=== PATIENT | female | born 1995 | race American Indian/Alaskan Native ===

== ENCOUNTER 2020-10-23 00:45 | Emergency (ER) | payer SELFPAY ==
--- NOTE | 2020-10-23 02:29 | XRay Report ---
XR knee 3V RT INDICATION: right knee pain. COMPARISON: No relevant prior imaging study available. FINDINGS: No acute skeletal abnormality. No significant soft tissue abnormality. IMPRESSION: 1. No acute findings. Signer Name: Yury Alfaro MD Signed: 10/23/2020 2:25 AM Workstation Name: [id number]
--- NOTE | 2020-10-23 03:15 | Emergency Department Report ---
ED Lower Extremity HPI - General Chief Complaint: Extremity Injury, Lower Stated Complaint: FALL Time Seen by Provider: 10/23/20 03:05 Source: patient Mode of arrival: Ambulatory Limitations: No Limitations - History of Present Illness MD Complaint: knee injury (Prolonged some steps and missed a step causing her right knee to twist laterally which follow-up followed by pain and a sensation of swelling which is continues to throb and elevate since the onset) -: days(s) (1) Injury: Knee: Right Type of Injury: eversion Place: home Severity: mild, moderate Improves With: immobilization Worsens With: weight bearing, movement, palpation Associated Symptoms: swelling, able to partially bear weight - Related Data Previous Rx's Medication Instructions Recorded Last Taken Type Ketorolac [Toradol] 10 mg PO Q6H PRN #14 tablet 10/23/20 Unknown Rx Allergies Allergy/AdvReac Type Severity Reaction Status Date / Time No Known Allergies Allergy Unverified 10/23/20 02:03 ED Review of Systems ROS: Stated complaint: FALL Other details as noted in HPI Comment: All other systems reviewed and negative ED Past Medical Hx - Past Medical History Previous Medical History?: Yes Hx Asthma: Yes - Surgical History Past Surgical History?: No - Social History Smoking Status: Current Every Day Smoker Substance Use Type: None - Medications Home Medications: Home Medications Medication Instructions Recorded Confirmed Last Taken Type Ketorolac [Toradol] 10 mg PO Q6H PRN #14 tablet 10/23/20 Unknown Rx ED Physical Exam - General Limitations: No Limitations General appearance: alert, in no apparent distress - Head Head exam: Present: atraumatic, normocephalic - Eye Eye exam: Present: normal appearance - ENT ENT exam: Present: mucous membranes moist - Neck Neck exam: Present: normal inspection - Respiratory Respiratory exam: Present: normal lung sounds bilaterally. Absent: respiratory distress - Cardiovascular Cardiovascular Exam: Present: regular rate, normal rhythm. Absent: systolic murmur, diastolic murmur, rubs, gallop - GI/Abdominal GI/Abdominal exam: Present: soft, normal bowel sounds - Extremities Exam Extremities exam: Present: normal inspection, tenderness, normal capillary refill - Expanded Lower Extremity Exam Right Knee exam: Present: tenderness, swelling, effusion, pain w/ pronati on/supination, pain/laxity with varus, full knee extension. Absent: ecchymosis, deformity, crepidus, dislocation, erythema Lower Leg exam: Present: normal inspection, full ROM Ankle exam: Present: normal inspection, full ROM Foot/Toe exam: Present: normal inspection, full ROM - Back Exam Back exam: Present: normal inspection - Neurological Exam Neurological exam: Present: alert, oriented X3 - Psychiatric Psychiatric exam: Present: normal affect, normal mood - Skin Skin exam: Present: warm, dry, intact, normal color. Absent: rash ED Course Vital Signs 10/23/20 01:57 Temperature 98.2 F Pulse Rate 101 H Respiratory 18 Rate Blood Pressure 117/68 O2 Sat by Pulse 99 Oximetry ED Lower Extremity MDM - Radiology Data Radiology results: report reviewed [facility] [address] [place] [address] XRay Report Signed Patient: KAREN NOBLE MR#: [id number] : 1995 Acct:[id number] Age/Sex: 25 / F ADM Date: 10/23/20 Loc: ED Attending Dr: Ordering Physician: ED MD AMAIRANI Date of Service: 10/23/20 Procedure(s): XR knee 3V RT Accession Number(s): [id number] cc: ED MD AMAIRANI Fluoro Time In Minutes: XR knee 3V RT INDICATION: right knee pain. COMPARISON: No relevant prior imaging study available. FINDINGS: No acute skeletal abnormality. No significant soft tissue abnormality. IMPRESSION: 1. No acute findings. Signer Name: Yury Alfaro MD Signed: 10/23/2020 2:25 AM Workstation Name: [id number] Transcribed By: JUAN Dictated By: Yury Alfaro MD Electronically Authenticated By: Yury Alfaro MD Signed Date/Time: 10/23/20224 DD/ 3 TD/TT: - Medical Decision Making 19-year-old female trips twisting injury to the knee resulting in pain likely internal derangement of a mild to moderate etiology unable to bear weight well enough to ambulate at emergency department so provided with crutches and a knee immobilizer she has been this advised and we discussed in great detail her need to follow-up with orthopedic she did express an understanding Critical care attestation.: If time is entered above; I have spent that time in minutes in the direct care of this critically ill patient, excluding procedure time. ED Disposition Clinical Impression: Knee internal derangement Disposition: DC-01 TO HOME OR SELFCARE Is pt being admited?: No Does the pt Need Aspirin: No Condition: Stable Instructions: Meniscus Tear, Acute Knee Pain, Adult Prescriptions: Ketorolac [Toradol] 10 mg PO Q6H PRN #14 tablet PRN Reason: Pain Referrals: PRIMARY CARE, [Primary Care Provider] - 3-5 Days DAYANA ALVES MD [Staff Physician] - 3-5 Days
[2020-10-23] MEDS ORDERED: HYDROcodone/ACETAMINOPHEN 5-325 MG TAB PO STA (03:17)
[2020-10-23 04:42] VITALS: BP 120/72
== END 2020-10-23 03:51 | disposition home or self-care (01) ==
LOC: ED 00:45
DX: M23.8X1 Other internal derangements of right knee (principal); J45.909 Unspecified asthma, uncomplicated; F17.200 Nicotine dependence, unspecified, uncomplicated; Z79.899 Other long term (current) drug therapy

== ENCOUNTER 2020-11-15 18:32 | Emergency (ER) | payer SELFPAY ==
[2020-11-15 21:13] VITALS: BP 119/43
== END 2020-11-15 23:50 | disposition left against medical advice (07) ==
LOC: ED 18:32
DX: M25.562 Pain in left knee (principal); Z53.21 Procedure and treatment not carried out due to patient leaving prior to being seen by health care provider

== ENCOUNTER 2020-11-16 10:08 | Emergency (ER) | payer SELFPAY ==
[2020-11-16 10:26] VITALS: BP 145/93
--- NOTE | 2020-11-16 11:52 | Emergency Department Report ---
ED Lower Extremity HPI - General Chief Complaint: Extremity Injury, Lower Stated Complaint: LT KNEE PAIN Time Seen by Provider: 11/16/20 10:38 Source: patient Mode of arrival: Ambulatory Limitations: No Limitations - History of Present Illness Initial Comments: Atraumatic left knee pain for 1 month. 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 Type of Injury: unknown Place: home, work Severity: mild Improves With: nothing Worsens With: nothing Associated Symptoms: ambulatory - Related Data Previous Rx's Medication Instructions Recorded Last Taken Type Ketorolac [Toradol] 10 mg PO Q6H PRN #14 tablet 10/23/20 Unknown Rx Ketorolac [Toradol] 10 mg PO Q6H PRN #14 tablet 11/16/20 Unknown Rx Allergies Allergy/AdvReac Type Severity Reaction Status Date / Time No Known Allergies Allergy Verified 11/16/20 10:22 ED Review of Systems ROS: Stated complaint: LT KNEE PAIN Other details as noted in HPI Comment: All other systems reviewed and negative ED Past Medical Hx - Past Medical History Hx Asthma: Yes - Surgical History Past Surgical History?: No - Social History Smoking Status: Never Smoker Substance Use Type: None - Medications Home Medications: Home Medications Medication Instructions Recorded Confirmed Last Taken Type Ketorolac [Toradol] 10 mg PO Q6H PRN #14 tablet 10/23/20 Unknown Rx Ketorolac [Toradol] 10 mg PO Q6H PRN #14 tablet 11/16/20 Unknown Rx ED Physical Exam - General Limitations: No Limitations General appearance: alert, in no apparent distress - Head Head exam: Present: atraumatic, normocephalic - Eye Eye exam: Present: normal appearance, PERRL, EOMI Pupils: Present: normal accommodation - ENT ENT exam: Present: normal exam, mucous membranes moist - Neck Neck exam: Present: normal inspection, full ROM - Respiratory Respiratory exam: Present: normal lung sounds bilaterally. Absent: respiratory distress - Cardiovascular Cardiovascular Exam: Present: regular rate, normal rhythm. Absent: systolic murmur, diastolic murmur, rubs, gallop - GI/Abdominal GI/Abdominal exam: Present: soft, normal bowel sounds - Extremities Exam Extremities exam: Present: normal inspection - Back Exam Back exam: Present: normal inspection - Neurological Exam Neurological exam: Present: alert, oriented X3 - Psychiatric Psychiatric exam: Present: normal affect, normal mood - Skin Skin exam: Present: warm, dry, intact, normal color. Absent: rash ED Course Vital Signs 11/16/20 10:24 Temperature 97.9 F Pulse Rate 95 H Respiratory 16 Rate Blood Pressure 145/93 O2 Sat by Pulse 99 Oximetry Critical care attestation.: If time is entered above; I have spent that time in minutes in the direct care of this critically ill patient, excluding procedure time. ED Disposition Clinical Impression: Knee pain Disposition: DC-01 TO HOME OR SELFCARE Is pt being admited?: No Does the pt Need Aspirin: No Condition: Stable Instructions: Acute Knee Pain, Adult, How to Use Cold Therapy, Zbcn-[id number], Joint Pain, [id number]-[id number] Additional Instructions: Please follow up with your PCP or ORTHO as there has been on trauma involved with your knee and your exam is normal. Further testing may be warranted but no urgent or emergent knee condition is suspected Prescriptions: Ketorolac [Toradol] 10 mg PO Q6H PRN #14 tablet PRN Reason: Pain Referrals: PRIMARY CAREMD [Primary Care Provider] - 3-5 Days DAYANA ALVES MD [Staff Physician] - 3-5 Days
== END 2020-11-16 12:21 | disposition home or self-care (01) ==
LOC: ED 10:08
DX: M25.562 Pain in left knee (principal); J45.909 Unspecified asthma, uncomplicated; Z79.899 Other long term (current) drug therapy
CPT/HCPCS: 99282

== ENCOUNTER 2020-12-31 13:17 | Emergency (ER) | payer SELFPAY ==
[2020-12-31 14:11] VITALS: BP 132/76
--- NOTE | 2020-12-31 14:16 | Emergency Department Report ---
ED Asthma HPI - General Chief Complaint: Adult Asthma Stated Complaint: CHEST TIGHT/MILD ASTHMA ATTACK Time Seen by Provider: 12/31/20 14:02 Source: patient Mode of arrival: Ambulatory Limitations: No Limitations - History of Present Illness Initial Comments: Is a pleasant 25-year-old female presents the emerge department chief complaint of tightness in her chest and a dry cough over the past few days. She reports she has been having flareups of the symptoms on and off over the past month. She has a history of asthma but does not take any medications currently. She denies any associated fever, chills, night sweats, headache, dizziness, blurry vision, nausea,, diarrhea, chest pain, shortness of breath otherwise. She denies any sick contacts, recent travel or immobilization. - Related Data Previous Rx's Medication Instructions Recorded Last Taken Type Ketorolac [Toradol] 10 mg PO Q6H PRN #14 tablet 10/23/20 Unknown Rx Ketorolac [Toradol] 10 mg PO Q6H PRN #14 tablet 11/16/20 Unknown Rx Albuterol Sulfate [Proair 90 mcg IH Q4HR PRN #1 aer.pw.bas 12/31/20 Unknown Rx Digihaler] methylPREDNISolone [Medrol 4MG 4 mg PO ONCE #1 tab.ds.pk 12/31/20 Unknown Rx DOSEPAK (21 tabs)] Allergies Allergy/AdvReac Type Severity Reaction Status Date / Time No Known Allergies Allergy Verified 11/16/20 10:22 ED Review of Systems ROS: Stated complaint: CHEST TIGHT/MILD ASTHMA ATTACK Other details as noted in HPI Comment: All other systems reviewed and negative Constitutional: denies: chills, fever Eyes: denies: eye pain, eye discharge, vision change ENT: denies: ear pain, throat pain Respiratory: see HPI, cough, wheezing. denies: shortness of breath Cardiovascular: denies: chest pain, palpitations Endocrine: no symptoms reported Gastrointestinal: denies: abdominal pain, nausea, diarrhea Genitourinary: denies: urgency, dysuria, discharge Musculoskeletal: denies: back pain, joint swelling, arthralgia Skin: denies: rash, lesions Neurological: denies: headache, weakness, paresthesias Psychiatric: denies: anxiety, depression Hematological/Lymphatic: denies: easy bleeding, easy bruising ED Past Medical Hx - Past Medical History Previous Medical History?: Yes Hx Asthma: Yes - Surgical History Past Surgical History?: No - Social History Smoking Status: Current Every Day Smoker Substance Use Type: None - Medications Home Medications: Home Medications Medication Instructions Recorded Confirmed Last Taken Type Ketorolac [Toradol] 10 mg PO Q6H PRN #14 tablet 10/23/20 Unknown Rx Ketorolac [Toradol] 10 mg PO Q6H PRN #14 tablet 11/16/20 Unknown Rx Albuterol Sulfate [Proair 90 mcg IH Q4HR PRN #1 aer.pw.bas 12/31/20 Unknown Rx Digihaler] methylPREDNISolone [Medrol 4MG 4 mg PO ONCE #1 tab.ds.pk 12/31/20 Unknown Rx DOSEPAK (21 tabs)] ED Physical Exam - General Limitations: No Limitations General appearance: alert, in no apparent distress - Head Head exam: Present: atraumatic, normocephalic - Eye Eye exam: Present: normal appearance, PERRL, EOMI Pupils: Present: normal accommodation - ENT ENT exam: Present: normal exam, normal orophraynx, mucous membranes moist - Neck Neck exam: Present: normal inspection, full ROM. Absent: tenderness - Respiratory Respiratory exam: Present: wheezes (Mild expiratory wheezing, no increased work of breathing). Absent: respiratory distress, rales, rhonchi, stridor, chest wall tenderness - Cardiovascular Cardiovascular Exam: Present: regular rate, normal rhythm. Absent: systolic murmur, diastolic murmur, rubs, gallop - GI/Abdominal GI/Abdominal exam: Present: soft, normal bowel sounds - Extremities Exam Extremities exam: Present: normal inspection - Back Exam Back exam: Present: normal inspection - Neurological Exam Neurological exam: Present: alert, oriented X3 - Psychiatric Psychiatric exam: Present: normal affect, normal mood - Skin Skin exam: Present: warm, dry, intact, normal color. Absent: rash ED Course Vital Signs 12/31/20 14:07 Temperature 98.6 F Pulse Rate 90 Respiratory 20 Rate Blood Pressure 132/76 O2 Sat by Pulse 96 Oximetry ED Medical Decision Making - Medical Decision Making Patient nontoxic in no acute distress. Vital signs are stable. She is PERC negative and a low risk by Wells criteria making PE unlikely. Her lung sounds relatively clear other than very mild expiratory wheeze. I will treat the patient with Medrol Dosepak and inhaler and recommended outpatient follow-up with primary care doctor. Return to the emerge department change worsening symptoms. Patient verbalized understand the diagnosis, treatment plan and follow-up instructions and all of her questions were answered. - Differential Diagnosis URI, asthma exacerbation, COVID-19, PE Critical care attestation.: If time is entered above; I have spent that time in minutes in the direct care of this critically ill patient, excluding procedure time. ED Disposition Clinical Impression: Asthma exacerbation Qualifiers: Asthma severity: mild Asthma persistence: intermittent Qualified Code(s): J45.21 - Mild intermittent asthma with (acute) exacerbation Disposition: TO HOME OR SELFCARE Is pt being admited?: No Condition: Stable Instructions: Asthma, Adult Prescriptions: methylPREDNISolone [Medrol 4MG DOSEPAK (21 tabs)] 4 mg PO ONCE #1 tab.ds.pk Albuterol Sulfate [Proair Digihaler] 90 mcg IH Q4HR PRN #1 aer.pw.bas PRN Reason: Wheezing Referrals: DELTA GARNER MD [Staff Physician] - 3-5 Days [facility] [Provider Group] - 3-5 Days Forms: Work/School Release Form(ED) Time of Disposition: 14:15
== END 2020-12-31 15:02 | disposition home or self-care (01) ==
LOC: ED 13:17
DX: J45.901 Unspecified asthma with (acute) exacerbation (principal); F17.200 Nicotine dependence, unspecified, uncomplicated; Z79.899 Other long term (current) drug therapy
CPT/HCPCS: 99282

== ENCOUNTER 2021-05-15 19:17 | Emergency (ER) | payer SELFPAY ==
[2021-05-15] MEDS ORDERED: IPRATROPIUM 0.02% NEBU 2.5 ML IH ONE (20:53)
[2021-05-15] MEDS ORDERED: ALBUTEROL 2.5 MG/3 ML NEBU IH ONE (20:53)
[2021-05-15] MEDS ORDERED: ACETAMINOPHEN 500 MG TAB PO ONE (20:54)
[2021-05-15] MEDS ORDERED: predniSONE 20 MG TAB PO ONE (20:54)
[2021-05-15 21:20] LABS: Bilirubin,Urine NEG (Negative); Blood,Urine NEG (Negative); Color,Urine Yellow (Yellow); Mucus,Urine 1+ /HPF; Protein,Urine <15 mg/dL mg/dL (Negative)
[2021-05-15 21:31] LABS: HCG Qualitative,Urine Negative (Negative)
--- NOTE | 2021-05-15 21:56 | XRay Report ---
XR chest 1V ap INDICATION / CLINICAL INFORMATION: COUGH, ASTHMA. COMPARISON: None available. FINDINGS: SUPPORT DEVICES: None. HEART /PULMONARY VASCULATURE: No significant abnormality. LUNGS / PLEURA: No significant pulmonary or pleural abnormality. No pneumothorax. ADDITIONAL FINDINGS: No significant additional findings. IMPRESSION: 1. No acute findings. Signer Name: Lee Arreola MD Signed: 05/15/2021 9:51 PM Workstation Name: [id number]
--- NOTE | 2021-05-15 23:57 | Emergency Department Report ---
ED Shortness of Breath HPI - General Chief Complaint: Adult Asthma Stated Complaint: TIGHTNESS CHEST Source: patient Mode of arrival: Ambulatory Limitations: No Limitations - History of Present Illness Initial Comments: Patient is a 25-year-old -[place] female with a history of chronic heavy tobacco abuse and asthma who presents to the ED with complaint of acute onset p ersistent shortness of breath, nasal and sinus congestion, chest tightness for the last 24 hours. Patient states that she has been using her albuterol inhaler at home after she ran out of her albuterol nebulizer at home but that her symptoms have worsened especially in the last 6 hours. Patient denies fever, chills, chest pain, abdominal pain, diarrhea, dizziness, syncope, change in vision, headache, nausea and vomiting or or hemoptysis. MD Complaint: shortness of breath, cough, "asthma attack" -: Sudden, hour(s) (24) Radiation: other (chest pain) Severity: moderate Pain Scale: 5 Quality: other (Chest tightness) Consistency: constant Improves With: nothing Worsens With: nothing Known History Of: asthma Context: recent URI, allergen exposure Associated Symptoms: denies other symptoms, cough, other (Wheezing) Treatments Prior to Arrival: none - Related Data Home Oxygen Therapy: No Previous Rx's Medication Instructions Recorded Last Taken Type Ketorolac [Toradol] 10 mg PO Q6H PRN #14 tablet 10/23/20 Unknown Rx Ketorolac [Toradol] 10 mg PO Q6H PRN #14 tablet 11/16/20 Unknown Rx ALBUTEROL NEB's [Proventil 0.083% 3 ml IH Q6H PRN #75 ml 05/15/21 Unknown Rx NEBS] Albuterol Sulfate [Proair 90 mcg IH Q4HR PRN #1 aer.pw.bas 05/15/21 Unknown Rx Digihaler] Benzonatate [Tessalon Perles] 100 mg PO Q8HR #30 capsule 05/15/21 Unknown Rx Cetirizine HCl [Zyrtec 10mg tab] 10 mg PO DAILY #30 tablet 05/15/21 Unknown Rx methylPREDNISolone [Medrol 4MG 4 mg PO ONCE #1 tab.ds.pk 05/15/21 Unknown Rx DOSEPAK (21 tabs)] Allergies Allergy/AdvReac Type Severity Reaction Status Date / Time No Known Allergies Allergy Verified 11/16/20 10:22 ED Review of Systems ROS: Stated complaint: TIGHTNESS CHEST Other details as noted in HPI Constitutional: denies: chills, fever Eyes: denies: eye pain, eye discharge, vision change ENT: denies: ear pain, throat pain Respiratory: cough, shortness of breath, wheezing Cardiovascular: chest pain (Chest tightness). denies: palpitations Endocrine: no symptoms reported Gastrointestinal: denies: abdominal pain, nausea, vomiting, diarrhea Genitourinary: denies: urgency, dysuria, discharge Musculoskeletal: denies: back pain, joint swelling, arthralgia Skin: denies: rash, lesions Neurological: denies: headache, weakness, paresthesias Psychiatric: denies: anxiety, depression Hematological/Lymphatic: denies: easy bleeding, easy bruising ED Past Medical Hx - Past Medical History Hx Asthma: Yes - Surgical History Past Surgical History?: No - Social History Smoking Status: Never Smoker Substance Use Type: None - Medications Home Medications: Home Medications Medication Instructions Recorded Confirmed Last Taken Type Ketorolac [Toradol] 10 mg PO Q6H PRN #14 tablet 10/23/20 Unknown Rx Ketorolac [Toradol] 10 mg PO Q6H PRN #14 tablet 11/16/20 Unknown Rx ALBUTEROL NEB's [Proventil 0.083% 3 ml IH Q6H PRN #75 ml 05/15/21 Unknown Rx NEBS] Albuterol Sulfate [Proair 90 mcg IH Q4HR PRN #1 aer.pw.bas 05/15/21 Unknown Rx Digihaler] Benzonatate [Tessalon Perles] 100 mg PO Q8HR #30 capsule 05/15/21 Unknown Rx Cetirizine HCl [Zyrtec 10mg tab] 10 mg PO DAILY #30 tablet 05/15/21 Unknown Rx methylPREDNISolone [Medrol 4MG 4 mg PO ONCE #1 tab.ds.pk 05/15/21 Unknown Rx DOSEPAK (21 tabs)] ED Physical Exam - General Limitations: No Limitations General appearance: alert, in no apparent distress - Head Head exam: Present: atraumatic, normocephalic, normal inspection - Eye Eye exam: Present: normal appearance, PERRL, EOMI Pupils: Present: normal accommodation - ENT ENT exam: Present: normal exam, normal orophraynx, mucous membranes moist, TM's normal bilaterally, normal external ear exam - Neck Neck exam: Present: normal inspection, full ROM - Respiratory Respiratory exam: Present: wheezes (Diffuse coarse wheezes throughout). Absent: respiratory distress, rales, rhonchi, stridor, chest wall tenderness, accessory muscle use, decreased breath sounds, prolonged expiratory - Cardiovascular Cardiovascular Exam: Present: normal rhythm, tachycardia, normal heart sounds. Absent: systolic murmur, diastolic murmur, rubs, gallop - GI/Abdominal GI/Abdominal exam: Present: soft, normal bowel sounds. Absent: tenderness, guarding, rebound, hyperactive bowel sounds, hypoactive bowel sounds - Extremities Exam Extremities exam: Present: normal inspection, full ROM, normal capillary refill - Back Exam Back exam: Present: normal inspection, full ROM. Absent: tenderness, CVA tenderness (R), CVA tenderness (L), muscle spasm, paraspinal tenderness, vertebral tenderness - Neurological Exam Neurological exam: Present: alert, oriented X3, CN II-XII intact, normal gait, reflexes normal - Psychiatric Psychiatric exam: Present: normal affect, normal mood, anxious - Skin Skin exam: Present: warm, dry, intact, normal color. Absent: rash ED Course Vital Signs 05/15/21 05/15/21 21:19 22:26 Pulse Rate [ 100 H Posterior Bilateral Throughout] Respiratory 18 16 Rate [Posterior Bilateral Throughout] ED Medical Decision Making - Radiology Data Radiology results: report reviewed, image reviewed [address] [address] XRay Report Signed Patient: KAREN NOBLE MR#: [id number] : 1995 Acct:[id number] Age/Sex: 25 / F ADM Date: 05/15/21 Loc: ED Attending Dr: Ordering Physician: FIDELINA MELCHOR Date of Service: 05/15/21 Procedure(s): XR chest 1V ap Accession Number(s): [id number] cc: FIDELINA MELCHOR Fluoro Time In Minutes: XR chest 1V ap INDICATION / CLINICAL INFORMATION: COUGH, ASTHMA. COMPARISON: None available. FINDINGS: SUPPORT DEVICES: None. HEART /PULMONARY VASCULATURE: No significant abnormality. LUNGS / PLEURA: No significant pulmonary or pleural abnormality. No pneumothorax. ADDITIONAL FINDINGS: No significant additional findings. IMPRESSION: 1. No acute findings. Signer Name: Dimitri Norwood MD Signed: 05/15/2021 9:51 PM Workstation Name: [id number] Transcribed By: GAUDENCIO Dictated By: DIMITRI NORWOOD MD Electronically Authenticated By: DIMITRI NORWOOD MD Signed Date/Time: 05/15/212150 DD/ 50 TD/TT: - Medical Decision Making This is a 25-year-old -[place] female with a history of chronic heavy tobacco abuse and asthma who presents to the ED with complaint of acute onset persistent shortness of breath, nasal and sinus congestion, chest tightness for the last 24 hours. Patient states that she has been using her albuterol inhaler at home after she ran out of her albuterol nebulizer at home but that her symptoms have worsened especially in the last 6 hours. In the ED, patient is alert and oriented x3 and is not in any distress but anxious and tachycardic but afebrile in triage. Patient was treated in the ED with albuterol and ipratropium nebulizers in the ED. Chest x-ray showed no acute cardiopulmonary abnormalities or pneumonitis. On reevaluation, patient's tachycardia resolved, wheezing and shortness of breath also improved significantly with oxygen saturation of 98% in room air. Patient was therefore discharged home on medications and advised to follow-up with her primary care physician in 5 to 7 days for reevaluation. Patient is advised return to the ED immediately if symptoms get worse. - Differential Diagnosis Asthma; bronchitis; pneumonia; URI; anxiety Critical care attestation.: If time is entered above; I have spent that time in minutes in the direct care of this critically ill patient, excluding procedure time. ED Disposition Clinical Impression: Acute bronchitis with asthma with acute exacerbation, Shortness of breath, Tobacco abuse disorder Disposition: - TO HOME OR SELFCARE Is pt being admited?: No Does the pt Need Aspirin: No Condition: Stable Instructions: Acute Bronchitis (ED), Shortness of Breath, Adult, Uolf-yo-Ztod, Cough, Adult, Kmof-cw-Bxwn, Acute Bronchitis, Adult, Arko-lh-Vuzo, Asthma, Adult, Vebq-on-Irgy, Health Risks of Smoking Additional Instructions: Chest x-ray showed no acute cardiopulmonary abnormalities or pneumonitis. Therefore take medication with food, drink plenty of fluids and follow-up with your primary care physician in 5 to 7 days for reevaluation. Return to the ED immediately if symptoms get worse. Consider quitting tobacco abuse to improve on your symptoms. Prescriptions: methylPREDNISolone [Medrol 4MG DOSEPAK (21 tabs)] 4 mg PO ONCE #1 tab.ds.pk Albuterol Sulfate [Proair Digihaler] 90 mcg IH Q4HR PRN #1 aer.pw.bas PRN Reason: Wheezing ALBUTEROL NEB's [Proventil 0.083% NEBS] 3 ml IH Q6H PRN #75 ml PRN Reason: Wheezing Benzonatate [Tessalon Perles] 100 mg PO Q8HR #30 capsule Cetirizine HCl [Zyrtec 10mg tab] 10 mg PO DAILY #30 tablet Referrals: [facility] [Provider Group] - 3-5 Days Time of Disposition: 23:54 Print Language: CONGOLESE
[2021-05-16 00:39] VITALS: BP 122/73
== END 2021-05-16 00:37 | disposition home or self-care (01) ==
LOC: ED 19:17
DX: J45.901 Unspecified asthma with (acute) exacerbation (principal); R06.02 Shortness of breath; Z72.0 Tobacco use; Z79.899 Other long term (current) drug therapy
CPT/HCPCS: 71045; 81001; 81025; 94644; 99284; J7512

== ENCOUNTER 2021-08-03 14:38 | Emergency (ER) | payer SELFPAY ==
[2021-08-03 15:00] VITALS: BP 123/81
[2021-08-03] MEDS ORDERED: IPRATROPIUM 0.02% NEBU 2.5 ML IH ONE ×3 (15:16→20:48)
[2021-08-03] MEDS ORDERED: ALBUTEROL 2.5 MG/3 ML NEBU IH ONE ×3 (15:16→20:47)
[2021-08-03] MEDS ORDERED: dexAMETHasone 20 MG/5 ML VIAL IM ONE (15:16)
--- NOTE | 2021-08-03 15:32 | Emergency Department Report ---
ED Asthma HPI - General Chief Complaint: Dyspnea/Respdistress Stated Complaint: ASTHMA Time Seen by Provider: 08/03/21 15:12 Source: patient Mode of arrival: Ambulatory Limitations: No Limitations - History of Present Illness Initial Comments: Patient is a 25-year-old female presents emergency room complaints of an asthma exacerbation that began last night. She has associated shortness of breath, wheezing, cough. She states that she ran out of her inhaler approximately a week ago and she has been out of her nebulizer solution for 1 month. She does not have a primary care doctor. She denies any nausea, vomiting, diarrhea, fever. She denies any known sick contacts or recent travel. Patient denies any other past medical history. No allergies to medications. She is a former smoker. - Related Data Previous Rx's Medication Instructions Recorded Last Taken Type Ketorolac [Toradol] 10 mg PO Q6H PRN #14 tablet 10/23/20 Unknown Rx Ketorolac [Toradol] 10 mg PO Q6H PRN #14 tablet 11/16/20 Unknown Rx ALBUTEROL NEB's [Proventil 0.083% 3 ml IH Q6H PRN #75 ml 05/15/21 Unknown Rx NEBS] Albuterol Sulfate [Proair 90 mcg IH Q4HR PRN #1 aer.pw.bas 05/15/21 Unknown Rx Digihaler] Benzonatate [Tessalon Perles] 100 mg PO Q8HR #30 capsule 05/15/21 Unknown Rx Cetirizine HCl [Zyrtec 10mg tab] 10 mg PO DAILY #30 tablet 05/15/21 Unknown Rx methylPREDNISolone [Medrol 4MG 4 mg PO ONCE #1 tab.ds.pk 05/15/21 Unknown Rx DOSEPAK (21 tabs)] ALBUTEROL NEB's [Proventil 0.083% 2.5 mg IH TID PRN #1 box 08/03/21 Unknown Rx NEBS] Albuterol Sulfate [Proventil Hfa] 1 - 2 puff IH TID PRN #1 hfa.aer.ad 08/03/21 Unknown Rx predniSONE [Deltasone] 20 mg PO QDAY 9 Days #18 tab 08/03/21 Unknown Rx Allergies Allergy/AdvReac Type Severity Reaction Status Date / Time No Known Allergies Allergy Verified 12/21/20 10:22 ED Review of Systems ROS: Stated complaint: ASTHMA Other details as noted in HPI Comment: All other systems reviewed and negative ED Past Medical Hx - Past Medical History Hx Asthma: Yes - Social History Smoking Status: Never Smoker Substance Use Type: None - Medications Home Medications: Home Medications Medication Instructions Recorded Confirmed Last Taken Type Ketorolac [Toradol] 10 mg PO Q6H PRN #14 tablet 10/23/20 Unknown Rx Ketorolac [Toradol] 10 mg PO Q6H PRN #14 tablet 11/16/20 Unknown Rx ALBUTEROL NEB's [Proventil 0.083% 3 ml IH Q6H PRN #75 ml 05/15/21 Unknown Rx NEBS] Albuterol Sulfate [Proair 90 mcg IH Q4HR PRN #1 aer.pw.bas 05/15/21 Unknown Rx Digihaler] Benzonatate [Tessalon Perles] 100 mg PO Q8HR #30 capsule 05/15/21 Unknown Rx Cetirizine HCl [Zyrtec 10mg tab] 10 mg PO DAILY #30 tablet 05/15/21 Unknown Rx methylPREDNISolone [Medrol 4MG 4 mg PO ONCE #1 tab.ds.pk 05/15/21 Unknown Rx DOSEPAK (21 tabs)] ALBUTEROL NEB's [Proventil 0.083% 2.5 mg IH TID PRN #1 box 08/03/21 Unknown Rx NEBS] Albuterol Sulfate [Proventil Hfa] 1 - 2 puff IH TID PRN #1 hfa.aer.ad 08/03/21 Unknown Rx predniSONE [Deltasone] 20 mg PO QDAY 9 Days #18 tab 08/03/21 Unknown Rx ED Physical Exam - General Limitations: No Limitations General appearance: alert, in no apparent distress - Head Head exam: Present: atraumatic, normocephalic - Eye Eye exam: Present: normal appearance - ENT ENT exam: Present: mucous membranes moist - Respiratory Respiratory exam: Present: wheezes, decreased breath sounds, prolonged expiratory. Absent: respiratory distress, rales, rhonchi, stridor, chest wall tenderness, accessory muscle use - Cardiovascular Cardiovascular Exam: Present: regular rate, normal rhythm, normal heart sounds. Absent: systolic murmur, diastolic murmur, rubs, gallop - Neurological Exam Neurological exam: Present: alert, oriented X3 - Psychiatric Psychiatric exam: Present: normal affect, normal mood - Skin Skin exam: Present: warm, dry, intact ED Course Vital Signs 08/03/21 08/03/21 08/03/21 14:59 21:04 21:32 Temperature 98.6 F Pulse Rate 102 H Pulse Rate [ 98 H Bilateral] Respiratory 20 Rate Respiratory 20 Rate [Bilateral ] Blood Pressure 123/81 [Right] O2 Sat by Pulse 93 96 Oximetry ED Medical Decision Making - Radiology Data Radiology results: report reviewed Ordering Physician: FIDELINA LUBIN Date of Service: 08/03/21 Procedure(s): XR chest routine 2V Accession Number(s): [id number] cc: FIDELINA LUBIN Fluoro Time In Minutes: XR chest routine 2V INDICATION / CLINICAL INFORMATION: SOB, cough, wheezing. COMPARISON: 05/15/2021 FINDINGS: SUPPORT DEVICES: None. HEART /PULMONARY VASCULATURE: No significant abnormality. LUNGS / PLEURA: No significant pulmonary or pleural abnormality. No pneumothorax. ADDITIONAL FINDINGS: No significant additional findings. IMPRESSION: 1. No acute findings. Signer Name: Dimitri Norwood MD Signed: 08/03/2021 3:45 PM Workstation Name: [id number] Transcribed By: JS Dictated By: DIMITRI NORWOOD MD Electronically Authenticated By: DIMITRI NORWOOD MD Signed Date/Time: 08/03/211544 DD/ 44 TD/TT: - Medical Decision Making Patient is a 25-year-old female presents emergency room complaints of an asthma exacerbation that began last night. She has associated shortness of breath, wheezing, cough. She states that she ran out of her inhaler approximately a week ago and she has been out of her nebulizer solution for 1 month. She does not have a primary care doctor. She denies any nausea, vomiting, diarrhea, fever. She denies any known sick contacts or recent travel. Patient denies any other past medical history. No allergies to medications. She is a former smoker. Initial vitals with mild hypoxia at 93%, on repeat after medications oxygen saturation has improved to 96% on room air. On exam patient has wheezing throughout, decreased air movement, prolonged expiratory phase. CXR: 1. No acute findings. Patient given continuous neb treatment, steroids, magnesium. On reexamination wheezing has significantly improved, continues to have mild wheeze, patient feels much better and states that she can breathe much better. Patient given refill of her medications and placed on prednisone taper. Discussed the importance of outpatient primary care follow-up for reexamination and management of her chronic asthma. Discuss strict return precautions. Advised patient Please take medication as prescribed. Follow-up with your primary care doctor. Return to emergency room medially for any new or worsening symptoms. Critical care attestation.: If time is entered above; I have spent that time in minutes in the direct care of this critically ill patient, excluding procedure time. ED Disposition Clinical Impression: Asthma exacerbation Qualifiers: Asthma severity: unspecified severity Asthma persistence: unspecified Qualified Code(s): J45.901 - Unspecified asthma with (acute) exacerbation Disposition: HOME / SELF CARE / HOMELESS Is pt being admited?: No Does the pt Need Aspirin: No Condition: Stable Instructions: Asthma, Adult Additional Instructions: Please take medication as prescribed. Follow-up with your primary care doctor. Return to emergency room medially for any new or worsening symptoms. Prescriptions: predniSONE [Deltasone] 20 mg PO QDAY 9 Days #18 tab ALBUTEROL NEB's [Proventil 0.083% NEBS] 2.5 mg IH TID PRN #1 box PRN Reason: Wheezing Albuterol Sulfate [Proventil Hfa] 1 - 2 puff IH TID PRN #1 hfa.aer.ad PRN Reason: shortness of breath/wheezing Referrals: DELTA GARNER MD [Staff Physician] - 3-5 Days [facility] [Provider Group] - 3-5 Days [facility], [LAB/CONTRACT] - 3-5 Days [facility] [Outside] - 3-5 Days Time of Disposition: 21:32 Print Language: ALGERIAN
--- NOTE | 2021-08-03 15:49 | XRay Report ---
XR chest routine 2V INDICATION / CLINICAL INFORMATION: SOB, cough, wheezing. COMPARISON: 05/15/2021 FINDINGS: SUPPORT DEVICES: None. HEART /PULMONARY VASCULATURE: No significant abnormality. LUNGS / PLEURA: No significant pulmonary or pleural abnormality. No pneumothorax. ADDITIONAL FINDINGS: No significant additional findings. IMPRESSION: 1. No acute findings. Signer Name: Lee Arreola MD Signed: 08/03/2021 3:45 PM Workstation Name: [email or web address]
[2021-08-03] MEDS ORDERED: MAGNESIUM SULFATE 2 GM/50 ML BAG IV ONE (17:36)
== END 2021-08-03 21:50 | disposition home or self-care (01) ==
LOC: ED 14:38
DX: J45.901 Unspecified asthma with (acute) exacerbation (principal)
CPT/HCPCS: 71046; 94640; 96365; 96372; 99283; J1100; J3475; 94644

== ENCOUNTER 2022-01-08 15:26 | Emergency (ER) | payer SELFPAY ==
[2022-01-08] MEDS ORDERED: methylPREDNISolone Sod Succinate 125 MG/2 ML INJ IV ONE (16:51)
[2022-01-08] MEDS ORDERED: ALBUTEROL 2.5 MG/3 ML NEBU IH ONE (16:52)
[2022-01-08] MEDS ORDERED: IPRATROPIUM 0.02% NEBU 2.5 ML IH ONE (16:53)
--- NOTE | 2022-01-08 17:20 | XRay Report ---
CHEST 2 VIEWS INDICATION / CLINICAL INFORMATION: Upper Respiratory Infection. COMPARISON: 08/03/2021 FINDINGS: SUPPORT DEVICES: None. HEART / MEDIASTINUM: No significant abnormality. LUNGS / PLEURA: No significant pulmonary or pleural abnormality. No pneumothorax. ADDITIONAL FINDINGS: No significant additional findings. IMPRESSION: 1. No acute findings. Signer Name: Anthony Blecher MD Signed: 01/08/2022 5:16 PM Workstation Name: [id number]
--- NOTE | 2022-01-08 17:29 | Emergency Department Report ---
- General Chief Complaint: Upper Respiratory Infection Stated Complaint: SHORTNESS OF BREATH Source: patient Mode of arrival: Ambulatory Limitations: No Limitations - History of Present Illness Initial Comments: 26-year-old female presents to the ED complaining of shortness of breath, cough, fevers ,chills and body ache x1 day. She states that she has a history of asthma. She used a nebulizer treatment on yesterday. She states she is unvaccinated to COVID. Patient denies using any other medication prior to medication. Denies any chest pain or abdominal pain. MD Complaint: cough, nasal congestion -: Gradual Associated Symptoms: fever, chills, cough, shortness of breath - Related Data Previous Rx's Medication Instructions Recorded Last Taken Type Ketorolac [Toradol] 10 mg PO Q6H PRN #14 tablet 10/23/20 Unknown Rx Ketorolac [Toradol] 10 mg PO Q6H PRN #14 tablet 11/16/20 Unknown Rx ALBUTEROL NEB's [Proventil 0.083% 3 ml IH Q6H PRN #75 ml 05/15/21 Unknown Rx NEBS] Albuterol Sulfate [Proair 90 mcg IH Q4HR PRN #1 aer.pw.bas 05/15/21 Unknown Rx Digihaler] Benzonatate [Tessalon Perles] 100 mg PO Q8HR #30 capsule 05/15/21 Unknown Rx Cetirizine HCl [Zyrtec 10mg tab] 10 mg PO DAILY #30 tablet 05/15/21 Unknown Rx methylPREDNISolone [Medrol 4MG 4 mg PO ONCE #1 tab.ds.pk 05/15/21 Unknown Rx DOSEPAK (21 tabs)] ALBUTEROL NEB's [Proventil 0.083% 2.5 mg IH TID PRN #1 box 08/03/21 Unknown Rx NEBS] Albuterol Sulfate [Proventil Hfa] 1 - 2 puff IH TID PRN #1 hfa.aer.ad 08/03/21 Unknown Rx predniSONE [Deltasone] 20 mg PO QDAY 9 Days #18 tab 08/03/21 Unknown Rx Albuterol Mdi (or & Nicu Only) 2 puff IH QID PRN #8.5 gram 01/08/22 Unknown Rx [ProAir HFA Inhaler] Ferrous Sulfate [Iron 325 MG] 325 mg PO DAILY 30 Days #30 tab 01/08/22 Unknown Rx predniSONE [Deltasone] 50 mg PO QDAY 5 Days #5 tab 01/08/22 Unknown Rx Allergies Allergy/AdvReac Type Severity Reaction Status Date / Time No Known Allergies Allergy Verified 11/16/20 10:22 ED Review of Systems ROS: Stated complaint: SHORTNESS OF BREATH Other details as noted in HPI Constitutional: denies: chills, fever Eyes: denies: eye pain, eye discharge, vision change ENT: denies: ear pain, throat pain Respiratory: see HPI, shortness of breath. denies: cough, wheezing Cardiovascular: denies: chest pain, palpitations Endocrine: no symptoms reported Gastrointestinal: denies: abdominal pain, nausea, diarrhea Genitourinary: denies: urgency, dysuria, discharge Musculoskeletal: denies: back pain, joint swelling, arthralgia Skin: denies: rash, lesions Neurological: denies: headache, weakness, paresthesias Psychiatric: denies: anxiety, depression Hematological/Lymphatic: denies: easy bleeding, easy bruising ED Past Medical Hx - Past Medical History Hx Asthma: Yes - Social History Smoking Status: Never Smoker Substance Use Type: None - Medications Home Medications: Home Medications Medication Instructions Recorded Confirmed Last Taken Type Ketorolac [Toradol] 10 mg PO Q6H PRN #14 tablet 10/23/20 Unknown Rx Ketorolac [Toradol] 10 mg PO Q6H PRN #14 tablet 11/16/20 Unknown Rx ALBUTEROL NEB's [Proventil 0.083% 3 ml IH Q6H PRN #75 ml 05/15/21 Unknown Rx NEBS] Albuterol Sulfate [Proair 90 mcg IH Q4HR PRN #1 aer.pw.bas 05/15/21 Unknown Rx Digihaler] Benzonatate [Tessalon Perles] 100 mg PO Q8HR #30 capsule 05/15/21 Unknown Rx Cetirizine HCl [Zyrtec 10mg tab] 10 mg PO DAILY #30 tablet 05/15/21 Unknown Rx methylPREDNISolone [Medrol 4MG 4 mg PO ONCE #1 tab.ds.pk 05/15/21 Unknown Rx DOSEPAK (21 tabs)] ALBUTEROL NEB's [Proventil 0.083% 2.5 mg IH TID PRN #1 box 08/03/21 Unknown Rx NEBS] Albuterol Sulfate [Proventil Hfa] 1 - 2 puff IH TID PRN #1 hfa.aer.ad 08/03/21 Unknown Rx predniSONE [Deltasone] 20 mg PO QDAY 9 Days #18 tab 08/03/21 Unknown Rx Albuterol Mdi (or & Nicu Only) 2 puff IH QID PRN #8.5 gram 01/08/22 Unknown Rx [ProAir HFA Inhaler] Ferrous Sulfate [Iron 325 MG] 325 mg PO DAILY 30 Days #30 tab 01/08/22 Unknown Rx predniSONE [Deltasone] 50 mg PO QDAY 5 Days #5 tab 01/08/22 Unknown Rx ED Physical Exam - General Limitations: No Limitations General appearance: alert, in no apparent distress - Head Head exam: Present: atraumatic, normocephalic - Eye Eye exam: Present: normal appearance - ENT ENT exam: Present: mucous membranes moist - Neck Neck exam: Present: normal inspection - Respiratory Respiratory exam: Present: normal lung sounds bilaterally, wheezes. Absent: respiratory distress - Cardiovascular Cardiovascular Exam: Present: regular rate, normal rhythm. Absent: systolic murmur, diastolic murmur, rubs, gallop - GI/Abdominal GI/Abdominal exam: Present: soft, normal bowel sounds - Extremities Exam Extremities exam: Present: normal inspection - Back Exam Back exam: Present: normal inspection - Neurological Exam Neurological exam: Present: alert, oriented X3 - Psychiatric Psychiatric exam: Present: normal affect, normal mood - Skin Skin exam: Present: warm, dry, intact, normal color. Absent: rash ED Course Vital Signs 01/08/22 16:31 Temperature 99.7 F H Pulse Rate 111 H Respiratory 22 Rate Blood Pressure 119/82 [Right] O2 Sat by Pulse 96 Oximetry ED Medical Decision Making - Lab Data Result diagrams: 01/08/22 18:26 01/08/22 18:26 - Radiology Data [facility] [address] [place] [address] XRay Report Signed Patient: KAREN NOBLE MR# : [id number] : 1995 Acct:[id number] Age/Sex: 26 / F ADM Date: 01/08/22 Loc: ED Attending Dr: Ordering Physician: GERTRUDE FAJARDO Date of Service: 01/08/22 Procedure(s): XR chest routine 2V Accession Number(s): [id number] cc: MURRAY GERTRUDE CLOUD Fluoro Time In Minutes: CHEST 2 VIEWS INDICATION / CLINICAL INFORMATION: Upper Respiratory Infection. COMPARISON: 08/03/2021 FINDINGS: SUPPORT DEVICES: None. HEART / MEDIASTINUM: No significant abnormality. LUNGS / PLEURA: No significant pulmonary or pleural abnormality. No pneumothorax. ADDITIONAL FINDINGS: No significant additional findings. IMPRESSION: 1. No acute findings. Signer Name: Anthony Belcher MD Signed: 01/08/2022 5:16 PM Workstation Name: [id number] Transcribed By: TL Dictated By: Anthony Belcher MD Electronically Authenticated By: Anthony Belcher MD Signed Date/Time: 01/08/221715 DD/ 14 TD/TT: - Medical Decision Making 26-year-old female presents to the ED complaining of shortness of breath, cough, fevers ,chills and body ache x1 day. She states that she has a history of asthma. She used a nebulizer treatment on yesterday. She states she is unvaccinated to COVID. Patient denies using any other medication prior to medication. Denies any chest pain or abdominal pain. Patient given albuterol neb 10mg and Atrovent 1mg , magnesium 1 gm, terbutaline 0.25mg sq ,l liter of Normal Saline IV. Patient potassium 3.2 given K-Dur 40 mEq. Patient hemoglobin 8.9. Hematocrit 29.7. Patient will be sent home with on iron supplement . Patient also given albuterol inhaler and steroid. Patient at time of discharge O2 sats 99. Rechecked the patient is resting quietly quietly and comfortable and feeling better. I discussed the results of diagnostic study, my clinical impression and the plan for further treatment with the patient. Patient agrees with plan and discharge at this present time. All question addressed. I have given the patient instruction regarding a diagnosis ,expectation ,follow- up and return precaution. I explained to the patient that emergent condition may arise and to return to the ED for new worsen and any new persisting condition. I have explained the importance of following up with the primary care physician or referral physician listed below has instructed. The patient verbalized un derstanding of discharge instruction. Critical care attestation.: If time is entered above; I have spent that time in minutes in the direct care of this critically ill patient, excluding procedure time. ED Disposition Clinical Impression: Asthma exacerbation Qualifiers: Asthma severity: moderate Asthma persistence: unspecified Qualified Code(s): J45.901 - Unspecified asthma with (acute) exacerbation Anemia Qualifiers: Anemia type: iron deficiency Iron deficiency anemia type: unspecified iron deficiency Qualified Code(s): D50.9 - Iron deficiency anemia, unspecified Disposition: 01 HOME / SELF CARE / HOMELESS Is pt being admited?: No Does the pt Need Aspirin: No Condition: Stable Instructions: Asthma, Adult, [id number], Preventing Iron Deficiency Anemia, Adult Additional Instructions: Follow up with primary care return to ER for worsen symptoms Prescriptions: predniSONE [Deltasone] 50 mg PO QDAY 5 Days #5 tab Ferrous Sulfate [Iron 325 MG] 325 mg PO DAILY 30 Days #30 tab Albuterol Mdi (or & Nicu Only) [ProAir HFA Inhaler] 2 puff IH QID PRN #8.5 gram PRN Reason: Shortness Of Breath Referrals: PRIMARY CARE, [Primary Care Provider] - 3-5 Days [facility] [Provider Group] - 3-5 Days Forms: Work/School Release Form(ED)
[2022-01-08] MEDS ORDERED: ACETAMINOPHEN 500 MG TAB PO ONE (17:31)
[2022-01-08] MEDS ORDERED: LACTATED RINGERS 1,000 ML IV ONE ×2 (17:54→18:11)
[2022-01-08] MEDS ORDERED: MAGNESIUM SULFATE 1 GM in SODIUM CHLORIDE 0.9% 50 ML IV ONE (18:13)
[2022-01-08] MEDS ORDERED: TERBUTALINE 1 MG/1 ML INJ SUB-Q ONE (18:15)
[2022-01-08 18:37] LABS: Basophils % (Auto) 0.4 % (0.0-1.8); Eosinophils # (Auto) 0.3 K/mm3 (0.0-0.4); Eosinophils % (Auto) 4.2 % (0.0-4.3); Hematocrit 29.5 % (30.3-42.9); Hemoglobin 8.7 gm/dl (10.1-14.3); Lymphocytes # (Auto) 1.1 K/mm3 (1.2-5.4); Lymphocytes % (Auto) 13.1 % (13.4-35.0); Mean Corpuscular HGB Conc 29 % (30-34); Mean Corpuscular Volume 63 fl (79-97); Monocytes # (Auto) 0.5 K/mm3 (0.0-0.8); Monocytes % (Auto) 6.3 % (0.0-7.3); Platelet Count 259 K/mm3 (140-440); Red Cell Distribution Width 19.3 % (13.2-15.2)
[2022-01-08 19:06] LABS: Alanine Aminotransferase 36 units/L (7-56); Albumin 4.4 g/dL (3.9-5); Blood Urea Nitrogen 7 mg/dL (7-17); Calcium 8.6 mg/dL (8.4-10.2); Hemolysis Index 3
[2022-01-08 19:09] LABS: BUN/Creatinine Ratio 14
[2022-01-08] MEDS ORDERED: POTASSIUM CHLORIDE ER 20 MEQ TAB PO ONE (19:58)
[2022-01-08 20:57] VITALS: BP 118/78
== END 2022-01-08 20:58 | disposition home or self-care (01) ==
LOC: ED 15:26
DX: J45.901 Unspecified asthma with (acute) exacerbation (principal); D64.9 Anemia, unspecified; Z79.899 Other long term (current) drug therapy
CPT/HCPCS: 36415; 71046; 80053; 83735; 84132; 85025; 94640; 96365; 96366; 96372; 96375; 99284; J2930; J3105; J3475; J7120

== ENCOUNTER 2022-01-11 11:09 | Emergency (ER) | payer SELFPAY ==
[2022-01-11 11:19] VITALS: BP 103/77
[2022-01-11] MEDS ORDERED: IPRATROPIUM 0.02% NEBU 2.5 ML IH ONE (11:24)
[2022-01-11] MEDS ORDERED: methylPREDNISolone Sod Succinate 125 MG/2 ML INJ IM ONE (11:24)
[2022-01-11] MEDS ORDERED: ALBUTEROL 2.5 MG/3 ML NEBU IH ONE (11:24)
--- NOTE | 2022-01-11 11:25 | Emergency Department Report ---
Minor Respiratory - HPI Chief Complaint: Dyspnea/Respdistress Stated Complaint: SHORTNESS OF BREATH/CHEST TIGHTNESS Time Seen by Provider: 01/11/22 11:24 Pain Location: Chest Severity: mild Minor Respiratory: Yes Able to Tolerate Fluids, Yes Cough, No Rhinorrhea, No Sore Throat, No Ear Pain, No Sick Contacts, No Hemoptysis, No Chest Pain, No Shortness of Breath, No Fever Other History: 26 yo asthmatic known to us in ER. Comes in today wheezing. Just seen in ED a few days ago and does not have money for her meds. So she comes back. No fever or chills. No chest pain. ED Review of Systems ROS: Stated complaint: SHORTNESS OF BREATH/CHEST TIGHTNESS Other details as noted in HPI Comment: All other systems reviewed and negative ED Past Medical Hx - Past Medical History Previous Medical History?: Yes Hx Asthma: Yes Additional medical history: anemia - Surgical History Past Surgical History?: No - Family History Family history: no significant - Social History Smoking Status: Never Smoker Substance Use Type: None - Medications Home Medications: Home Medications Medication Instructions Recorded Confirmed Last Taken Type Albuterol Sulfate [Proair 90 mcg IH Q4HR PRN #1 aer.pw.bas 05/15/21 Unknown Rx Digihaler] Albuterol Mdi (or & Nicu Only) 2 puff IH QID PRN #8.5 gram 01/08/22 Unknown Rx [ProAir HFA Inhaler] Ferrous Sulfate [Iron 325 MG] 325 mg PO DAILY 30 Days #30 tab 01/08/22 Unknown Rx predniSONE [Deltasone] 50 mg PO QDAY 5 Days #5 tab 01/08/22 Unknown Rx Benzonatate [Tessalon Perles] 100 mg PO Q8HR #30 capsule 01/11/22 Unknown Rx Minor Respiratory Exam - Exam General: Vital signs noted. No distress. Alert and acting appropriately. HEENT: Yes Moist Mucous Membranes, No Pharyngeal Erythema, No Pharyngeal Exudates, No Rhinorrhea, No Conjuctival Injection, No Frontal Tenderness, No Maxillary Tenderness Ear: Neither TM Bulge, Neither TM Erythema, Neither EAC Pain, Neither EAC Discharge Neck: Yes Supple, No Adenopathy Lungs: Yes Good Air Exchange, Yes Wheezes, No Ronchi, No Stridor, No Cough, No Labored Respirations, No Retractions, No Use of Accessory Muscles, No Other Abnormal Lung Sounds Heart: Yes Regular, No Murmur Abdomen: Yes Normal Bowel Sounds, No Tenderness, No Peritoneal Signs Skin: No Rash, No Edema Neurologic: Alert and oriented, no deficits. Musculoskeletal: Unremarkable. ED Course Vital Signs 01/11/22 11:17 Temperature 98.4 F Pulse Rate 99 H Respiratory 18 Rate Blood Pressure 103/77 [Right] O2 Sat by Pulse 95 Oximetry ED Medical Decision Making - Medical Decision Making here 3 days ago did not get meds filled albuterol/atrovent/solumedrol in ER with relief of symptoms pt educated on follow up with pcp who may be able to help her get her meds. she has rx from prior visit. Dc home with follow up instructions. Sat on d/c 100 on room air. no wheezing. Ambulatory and nad. Vital Signs 01/11/22 11:17 Temperature 98.4 F Pulse Rate 99 H Respiratory 18 Rate Blood Pressure 103/77 [Right] O2 Sat by Pulse 95 Oximetry - Differential Diagnosis a/c asthma Critical care attestation.: If time is entered above; I have spent that time in minutes in the direct care of this critically ill patient, excluding procedure time. ED Disposition Clinical Impression: Non-adherence to medical treatment Asthma exacerbation Qualifiers: Asthma severity: mild Asthma persistence: persistent Qualified Code(s): J45.31 - Mild persistent asthma with (acute) exacerbation Disposition: 01 HOME / SELF CARE / HOMELESS Is pt being admited?: No Does the pt Need Aspirin: No Condition: Stable Instructions: Asthma, Adult Additional Instructions: follow up with pcp referral below he may be able to help you get meds get your prednisone/ iron/ nebs and inhalers filled from the other day Prescriptions: Benzonatate [Tessalon Perles] 100 mg PO Q8HR #30 capsule Referrals: DELTA GARNER MD [Staff Physician] - 3-5 Days Time of Disposition: 11:28
== END 2022-01-11 12:00 | disposition home or self-care (01) ==
LOC: ED 11:09
DX: J45.909 Unspecified asthma, uncomplicated (principal); Z91.19 Patient's noncompliance with other medical treatment and regimen
CPT/HCPCS: 94640; 96372; 99282; J2930; 94644